=== PATIENT | male | born 1955 | race Caucasian/White ===

== ENCOUNTER 2018-02-23 04:43 | Observation (INO) | payer OTHER ==
[2018-02-23 05:21] LABS: PLATELET COUNT 297 10^3/uL (150-400)
[2018-02-23] MEDS ORDERED: PANTOPRAZOLE SODIUM 40 MG VIAL IVP ONE (05:22)
--- NOTE | 2018-02-23 05:22 | EDPHY ---
H & P Stated Complaint: Bloody ulcer, hx bleeding ulcer, lethargic, poor appetite Time Seen by Provider: 02/23/18 05:11 HPI/ROS: Chief Complaint: Abdominal pain, lightheaded, dark black bowel movement HPI: 62-year-old male with a history of bleeding ulcer 2 years ago is presenting with epigastric abdominal pain for the last several days and a large black bowel movement this morning. He says these are similar to his symptoms when he had his ulcer 2 years ago. He has been taking ibuprofen couple tablets every other day for the last month. Is also complaining of increasing fatigue and lightheadedness and shortness of breath. He is visiting from [place] and [place]. Has had some shortness of breath after arrival but is feeling better now is at lower altitude. No fainting. No chest pain or shortness of breath. No bright red blood per rectum. No nausea or vomiting. ROS: 10 point Review of Systems is negative except as noted in the HPI. PMH: Hypertension, hyperlipidemia, peptic ulcer disease Social History: No smoking, occasional alcohol, no recreational drug use Family History: non-contributory Physical Exam: Gen: Awake, Alert, No Distress HEENT: Nose: no rhinorrhea Eyes: PERRLA, EOMI Mouth: Moist mucosa Neck: Supple, no JVD Chest: nontender, lungs clear to auscultation Heart: S1, S2 normal, no murmur Abd: Soft, non-tender, no guarding Back: no CVA tenderness, no midline tenderness Ext: no edema, non-tender Skin: no rash Neuro: CN II-XII intact, Sensation grossly intact, Strength 5/5 in bilateral upper and lower extremities - Personal History Current Tetanus Diphtheria and Acellular Pertussis (TDAP): Yes - Medical/Surgical History Hx Asthma: No Hx Chronic Respiratory Disease: No Hx Diabetes: No Hx Cardiac Disease: No Hx Renal Disease: No Hx Cirrhosis: No Hx Alcoholism: No Hx HIV/AIDS: No Hx Splenectomy or Spleen Trauma: No Other PMH: ulcers - Social History Smoking Status: Never smoked Constitutional: Initial Vital Signs Temperature (C) 36.7 C 02/23/18 04:45 Heart Rate 87 02/23/18 04:45 Respiratory Rate 18 02/23/18 04:45 Blood Pressure 102/73 02/23/18 04:45 O2 Sat (%) 98 02/23/18 04:45 O2 Delivery Mode Room Air Allergies/Adverse Reactions: No Known Allergies Allergy (Unverified 02/23/18 04:45) Home Medications: Medication Instructions Recorded Atorvastatin Calcium 02/23/18 Valsartan 02/23/18 buPROPion 02/23/18 Medical Decision Making ED Course/Re-evaluation: 62-year-old male with a history of peptic ulcer disease presenting with melena and epigastric discomfort. His H&H are normal here. He is hemodynamically appropriate. I have ordered IV Protonix for him. I have discussed with Dr. Mosher. She will admit to her service for GI consult and endoscopy. - Data Points Laboratory Results: Laboratory Results 02/23/18 05:05 02/23/18 05:05 02/23/18 02/23/18 05:05 05:05 WBC 10.38 10^3/uL H 10^3/uL (3.80-9.50) RBC 4.76 10^6/uL 10^6/uL (4.40-6.38) Hgb 14.6 g/dL g/dL (13.7-17.5) Hct 42.0 % % (40.0-51.0) MCV 88.2 fL fL (81.5-99.8) MCH 30.7 pg pg (27.9-34.1) MCHC 34.8 g/dL g/dL (32.4-36.7) RDW 12.3 % % (11.5-15.2) Plt Count 297 10^3/uL 10^3/uL (150-400) MPV 10.4 fL fL (8.7-11.7) Neut % (Auto) 81.6 % H % (39.3-74.2) Lymph % (Auto) 10.2 % L % (15.0-45.0) Esmeralda % (Auto) 7.2 % % (4.5-13.0) Eos % (Auto) 0.2 % L % (0.6-7.6) Baso % (Auto) 0.4 % % (0.3-1.7) Nucleat RBC Rel Count 0.0 % % (0.0-0.2) Absolute Neuts (auto) 8.47 10^3/uL H 10^3/uL (1.70-6.50) Absolute Lymphs (auto) 1.06 10^3/uL 10^3/uL (1.00-3.00) Absolute Monos (auto) 0.75 10^3/uL 10^3/uL (0.30-0.80) Absolute Eos (auto) 0.02 10^3/uL L 10^3/uL (0.03-0.40) Absolute Basos (auto) 0.04 10^3/uL 10^3/uL (0.02-0.10) Absolute Nucleated RBC 0.00 10^3/uL 10^3/uL (0-0.01) Immature Gran % 0.4 % % (0.0-1.1) Immature Gran # 0.04 10^3/uL 10^3/uL (0.00-0.10) Sodium 142 mEq/L mEq/L (135-145) Potassium 4.8 mEq/L mEq/L (3.3-5.0) Chloride 105 mEq/L mEq/L (97-110) Carbon Dioxide 23 mEq/l mEq/l (22-31) Anion Gap 14 mEq/L mEq/L (8-16) BUN 42 mg/dL H mg/dL (7-23) Creatinine 1.2 mg/dL mg/dL (0.7-1.3) Estimated GFR > 60 Glucose 90 mg/dL mg/dL (70-100) Calcium 9.6 mg/dL mg/dL (8.5-10.4) Medications Given: Discontinued Medications Pantoprazole Sodium (Protonix) 80 mg IVP EDNOW ONE Stop: 02/23/18 05:23 Last Admin: 02/23/18 05:32 Dose: 80 mg Departure - Departure Disposition: [facility] Inpatient Acute Clinical Impression: Upper GI bleed Condition: Fair
[2018-02-23] MEDS ORDERED: PANTOPRAZOLE SODIUM 40 MG VIAL ONE (05:27)
[2018-02-23] MEDS ORDERED: ONDANSETRON 4 MG/2 ML VIAL IVP PRN (05:54)
[2018-02-23] MEDS ORDERED: ACETAMINOPHEN 325 MG TAB PO PRN ×2 (05:54→13:22)
[2018-02-23] MEDS ORDERED: NS 1,000 ML IV SCH (06:00)
[2018-02-23 06:12] LABS: INR 1.03 (0.83-1.16); PROTIME(PATIENT) 13.7 SEC (12.0-15.0)
--- NOTE | 2018-02-23 06:22 | PDGENHP ---
History and Physical - Chief Complaint melena, abdominal pain - History of Present Illness Source-patient provides history appears reliable. EMR was reviewed and case discussed with ED provider. HPI-this is a pleasant 62-year-old gentleman with past medical history significant for HTN, peptic ulcer disease with history of GI bleed in 2016 s/p cauterization presents emergency department with complaints of a large melenic stool this morning. Patient reports that he did have some abdominal pain approximately 3 days ago was a burning aching pain in his mid abdomen. He also had some episodes of nausea vomiting without any hematemesis or coffee-ground emesis. Since that time patient has had significantly declined appetite, dyspnea on exertion and lightheadedness. He has also felt more lethargic. 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 He reports minimal intake in the last 3 days. Of note also patient is visiting his family from [place] and were staying at higher elevation. The patient did have denies any history of diarrhea. No sick contacts. No fevers chills. Patient has been taking ibuprofen for intermittent headaches at least 3-4 times per week for the past month. Since onset of his symptoms patient has restarted [id number] omeprazole. History Information - Allergies/Home Medication List Allergies/Adverse Reactions: No Known Allergies Allergy (Unverified 02/23/18 04:45) Home Medications: Atorvastatin Calcium 02/23/18 [Last Taken Unknown] Valsartan 02/23/18 [Last Taken Unknown] buPROPion 02/23/18 [Last Taken Unknown] I have personally reviewed and updated: family history, medical history, social history, surgical history - Past Medical History GI bleed (The peptic ulcer with history of cauterization 2016. ), hypertension - Surgical History Additional surgical history: EGD with cauterization (2016) - Family History Additional family history: No family history of peptic ulcer disease, irritable bowel disease or other GI issues. No diabetes or hypertension in the family. Father did have a history of coronary artery disease. - Social History Smoking Status: Never smoked Alcohol Use: None Drug Use: None Additional social history: Patient is lives with his . He is from the [facility]. He generally leads the healthy lifestyle and is avid cyclist. Cor status-full Review of Systems Review of Systems: ROS: 10pt was reviewed & negative except for what was stated in HPI & below Constitutional: Reports: malaise, weakness (Generalized weakness), other ( Patient reports that he feels flushed. No measured fevers. No chills.) EENMT: Reports: other (Wears glasses.). Denies: blurred vision, nose congestion , sore throat Cardiac: Reports: lightheadedness. Denies: edema, palpitations Respiratory: Reports: shortness of breath (Dyspnea on exertion.). Denies: cough , orthopnea, wheezing Gastrointestinal: Reports: vomitting, black stools, abdominal pain, nausea, other (See HPI). Denies: diarrhea Genitourinary: Reports: no symptoms Muscolosketal: Reports: no symptoms Skin: Reports: no symptoms Neurological: Reports: headache, weakness (Generalized weakness no focal deficits.). Denies: numbness, tingling Hematologic/Lymphatic: Reports: no symptoms Physical Exam Physical Exam: Temp Pulse Resp BP Pulse Ox 36.7 C 87 18 102/73 98 02/23/18 04:45 02/23/18 04:45 02/23/18 04:45 02/23/18 04:45 02/23/18 04:45 Constitutional: no apparent distress, other (NAD. Patient resting quietly in bed. Does appear slightly fatigued. His and brother are at bedside.) Eyes: PERRL, anicteric sclera, EOMI, No scleral injection Ears, Nose, Mouth, Throat: no oral mucosal ulcers, dry mucous membranes, other ( No nasal discharge.), No poor dentition Cardiovascular: regular rate and rhythym, no murmur, rub, or gallop, pulses symmetric bilaterally, No edema Peripheral Pulses: 2+: dorsalis-pedis (R), dorsalis-pedis (L) Respiratory: no respiratory distress, no rales or rhonchi, clear to auscultation , No expiratory wheeze, No inspiratory crackles Gastrointestinal: soft, non-tender abdomen, no palpable masses, other ( Hypoactive bowel sounds), No tenderness, No guarding, No rebound, No distension Genitourinary: no bladder tenderness, No kennedy in urethra Skin: warm, normal color, no rashes or abrasions Musculoskeletal: full muscle strength, other (Patient moves all extremities. Sits up independently.) Neurologic: AAOx3, sensation intact bilaterally, other (Grossly nonfocal exam.) , No facial droop Psychiatric: interacting appropriately, not anxious, not encephalopathic, thought process linear Lab Data & Imaging Review 02/23/18 05:05 02/23/18 05:05 WBC 10.38 10^3/uL (3.80-9.50) H 02/23/18 05:05 RBC 4.76 10^6/uL (4.40-6.38) 02/23/18 05:05 Hgb 14.6 g/dL (13.7-17.5) 02/23/18 05:05 Hct 42.0 % (40.0-51.0) 02/23/18 05:05 MCV 88.2 fL (81.5-99.8) 02/23/18 05:05 MCH 30.7 pg (27.9-34.1) 02/23/18 05:05 MCHC 34.8 g/dL (32.4-36.7) 02/23/18 05:05 RDW 12.3 % (11.5-15.2) 02/23/18 05:05 Plt Count 297 10^3/uL (150-400) 02/23/18 05:05 MPV 10.4 fL (8.7-11.7) 02/23/18 05:05 Neut % (Auto) 81.6 % (39.3-74.2) H 02/23/18 05:05 Lymph % (Auto) 10.2 % (15.0-45.0) L 02/23/18 05:05 Baker % (Auto) 7.2 % (4.5-13.0) 02/23/18 05:05 Eos % (Auto) 0.2 % (0.6-7.6) L 02/23/18 05:05 Baso % (Auto) 0.4 % (0.3-1.7) 02/23/18 05:05 Nucleat RBC Rel Count 0.0 % (0.0-0.2) 02/23/18 05:05 Absolute Neuts (auto) 8.47 10^3/uL (1.70-6.50) H 02/23/18 05:05 Absolute Lymphs (auto) 1.06 10^3/uL (1.00-3.00) 02/23/18 05:05 Absolute Monos (auto) 0.75 10^3/uL (0.30-0.80) 02/23/18 05:05 Absolute Eos (auto) 0.02 10^3/uL (0.03-0.40) L 02/23/18 05:05 Absolute Basos (auto) 0.04 10^3/uL (0.02-0.10) 02/23/18 05:05 Absolute Nucleated RBC 0.00 10^3/uL (0-0.01) 02/23/18 05:05 Immature Gran % 0.4 % (0.0-1.1) 02/23/18 05:05 Immature Gran # 0.04 10^3/uL (0.00-0.10) 02/23/18 05:05 PT 13.7 SEC (12.0-15.0) 02/23/18 05:05 INR 1.03 (0.83-1.16) 02/23/18 05:05 APTT 32.6 SEC (23.0-38.0) 02/23/18 05:05 Sodium 142 mEq/L (135-145) 02/23/18 05:05 Potassium 4.8 mEq/L (3.3-5.0) 02/23/18 05:05 Chloride 105 mEq/L (97-110) 02/23/18 05:05 Carbon Dioxide 23 mEq/l (22-31) 02/23/18 05:05 Anion Gap 14 mEq/L (8-16) 02/23/18 05:05 BUN 42 mg/dL (7-23) H 02/23/18 05:05 Creatinine 1.2 mg/dL (0.7-1.3) 02/23/18 05:05 Estimated GFR > 60 02/23/18 05:05 Glucose 90 mg/dL (70-100) 02/23/18 05:05 Calcium 9.6 mg/dL (8.5-10.4) 02/23/18 05:05 Total Bilirubin 1.0 mg/dL (0.1-1.4) 02/23/18 05:05 Conjugated Bilirubin 0.3 mg/dL (0.0-0.5) 02/23/18 05:05 Unconjugated Bilirubin 0.7 mg/dL (0.0-1.1) 02/23/18 05:05 AST 16 IU/L (17-59) L 02/23/18 05:05 ALT 29 IU/L (21-72) 02/23/18 05:05 Alkaline Phosphatase 56 IU/L (38-126) 02/23/18 05:05 Total Protein 7.3 g/dL (6.3-8.2) 02/23/18 05:05 Albumin 4.5 g/dL (3.5-5.0) 02/23/18 05:05 Assessment & Plan Assessment: 62-year-old gentleman with history of HTN, remote GI bleed due to ulcer in 2016 who presents to the ED with complaints of a large melenic stool preceded by abdominal pain. #Upper GI bleed (Acute) - patient currently hemodynamically stable. Blood pressure is low normal which patient reports remain elevated despite treatment. Heart rate within normal range. H&H is also within normal limits at this time. Patient has received a dose of Protonix in the emergency department. He will be admitted for observation. Will monitor H&H. Patient will be made NPO and given IV fluids. Case was discussed with (gastroenterology) and he will plan to see the patient this morning. chronic medical issues #The benign essential hypertension - blood pressures low end of normal at this time. Patient reports that they are usually still elevated despite treatment. Patient is symptomatic with lightheadedness and dyspnea on exertion. Plan as noted above. FEN - IV fluids as well with normal saline. Patient made will be made NPO. His mucous membranes appear slightly dry. PPX-SCDs. Received Protonix bolus in the ED. Cor status- full Disposition-patient will be admitted observation status on the medical floor pending further at evaluation and recommendations from GI.
[2018-02-23] MEDS ORDERED: LR 1,000 ML IV ONE (10:02)
--- NOTE | 2018-02-23 10:11 | PDANEPAE ---
ANE History of Present Illness r/o UGIB EGD ANE Past Medical History - Cardiovascular History Hx Hypertension: Yes - Pulmonary History Hx Oxygen in Use at Home: No Hx Sleep Apnea: No - Endocrine History Hx Diabetes: No - Chronic Pain History Chronic Pain: No ANE Review of Systems Review of Systems: - Exercise capacity Exercise capacity: >=4 METS ANE Patient History - Allergies Allergies/Adverse Reactions: No Known Allergies Allergy (Unverified 02/23/18 04:45) - Home Medications Home Medications: Acetaminophen [Tylenol 325mg (*)] 325 mg PO DAILY PRN 02/23/18 [Last Taken 02/22] Atorvastatin Calcium [Lipitor 10 mg (*)] 10 mg PO HS 02/23/18 [Last Taken ] Cholecalciferol Vit D3 [Vitamin D3 (*)] 1,000 units PO DAILY 02/23/18 [Last Taken 02/22/18] Montelukast Sodium [Singulair 10 mg (*)] 10 mg PO HS PRN 02/23/18 [Last Taken ] Multivitamins [Multivitamin (*)] 1 each PO DAILY 02/23/18 [Last Taken 02/22/18] Omeprazole 20 mg PO DAILY 02/23/18 [Last Taken 02/22/18] Valsartan [Diovan (*)] 160 mg PO DAILY 02/23/18 [Last Taken 02/22/18] buPROPion XL [Wellbutrin Xl] 150 mg PO DAILY 02/23/18 [Last Taken 02/22/18] - NPO status NPO Status: no food or drink >8 hours - Anes Hx Anes Hx: no prior problems - Smoking Hx Smoking Status: Never smoked - Alcohol Use Alcohol Use: None - Family Anes Hx Family Anes Hx: none ANE Labs/Vital Signs - Labs Result Diagrams: 02/23/18 09:18 02/23/18 05:05 - Vital Signs Blood Pressure: 101/69 Heart Rate: 57 Respiratory Rate: 18 O2 Sat (%): 95 Height: 182.88 cm Weight: 95.254 kg ANE Physical Exam - Airway Neck exam: FROM Mallampati Score: Class 2 Mouth exam: normal dental/mouth exam - Pulmonary Pulmonary: no respiratory distress, clear to auscultation - Cardiovascular Cardiovascular: regular rate and rhythym, no murmur, rub, or gallop - ASA Status ASA Status: II ANE Anesthesia Plan Anesthesia Plan: GA with mask
[2018-02-23] MEDS ORDERED: PROPOFOL/EMULSION 500 MG/50 ML BOTTLE IV ONE (10:15)
[2018-02-23] MEDS ORDERED: EPINEPHrine 1 MG/10 ML SYR IVP ONE (10:23)
[2018-02-23] MEDS ORDERED: NALOXONE HCL 0.4 MG/ML INJ IVP PRN (10:37)
[2018-02-23] MEDS ORDERED: ACETAMINOPHEN 500 MG TAB PO PRN (10:37)
--- NOTE | 2018-02-23 10:38 | POSTANESTH ---
Post Anesthetic Evaluation Cardiovascular Status: Normal, Stable, Similar to Pre-Op Cond Respiratory Status: Normal, Stable, Similar to Pre-op Cond. Level of Consciousness/Mental Status: Moderately Sleepy Pain Control: Adequate, Prn Tx Ordered Nausea/Vomiting Control: Adequate, Prn Tx Ordered Complications Possibly Related to Anesthesia: None Noted
--- NOTE | 2018-02-23 10:39 | GIREPORT ---
[facility] - Endoscopy Department Patient Name: Salazar Shannon Procedure Date: 02/23/2018 9:57 AM Patient Type: Inpatient Attending MD/ ER Physician: Salazar Torres MD Procedure: Upper GI endoscopy Indications: Periumbilical abdominal pain, Melena Providers: Salazar Torres MD Medicines: Propofol per Anesthesia Complications: No immediate complications. Description of Procedure: After obtaining informed consent, the endoscope was passed under direct vision. Throughout the procedure, the patient's blood pressure, pulse, and oxygen saturations were monitored continuously. The Endoscope was intro duced through the mouth, and advanced to the third part of duodenum. The uppe r GI endoscopy was accomplished without difficulty. The patient tolerated th e procedure well. Findings: LA Grade B (one or more mucosal breaks greater than 5 mm, not extending between the tops of two mucosal folds) esophagitis with no bleeding was found 35 cm from the incisors. The entire examined stomach was normal. Biopsies were taken with a cold forceps for histology. One non-bleeding cratered duodenal ulcer with pigmented material was fo und in the first portion of the duodenum. The lesion was 12 mm in largest dimension. The duodenal bulb, second portion of the duodenum and area of the papil la were normal. Estimated Blood Loss: Estimated blood loss: none. Post Op Diagnosis: - LA Grade B reflux esophagitis. - Normal stomach. Biopsied. - One non-bleeding duodenal ulcer with pigmented material. NSAID induce d. No endoscopic therapy required. - Normal duodenal bulb, second portion of the duodenum and area of the papilla. Recommendation: - Await pathology results and treat H.pylori if positive - Avoid all NSAIDs (stop ibuprofen). - Use Protonix (pantoprazole) 40 mg PO BID for 8 weeks then once daily thereafter given the recurrent nature of his ulcer history. - Repeat upper endoscopy in 3 months to check healing. - Advance diet as tolerated today. - [facility] to [facility] for possible discharge same day. - Thank you for allowing me to be involved in the care of your patient. Attending Participation: I personally performed the entire procedure without the assistance of a fellow, resident or surg ical physician assistant primary care. Salazar Torres MD Salazar Torres MD 02/23/2018 10:38:28 AM This report has been signed electronicallyDavid MD Brian Number of Addenda: 0 Note Initiated On: 02/23/2018 9:57 AM [email or web address]
--- NOTE | 2018-02-23 11:14 | GCON ---
[f rep st] CONSULTATION DATE OF CONSULTATION: 02/23/2018 REFERRING PHYSICIAN: Christine Gonzáles MD REASON FOR CONSULTATION: Melena. Dear Dr. Gonzáles: Thank you very kindly for asking me to evaluate Mr. Shannon in consultation for his chief complaint of melena. He is a pleasant 62-year-old gentleman with a previous history of a bleeding peptic ulcer t hat required endoscopic therapy, who presents with shortness of breath and fatigue and periumbilical abdominal pain. 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 Yesterday he had 1 large liquid dark black stool. There has been no nausea, vomiting, chest pain, heartburn, or hematoc hezia. He has been a little bit lightheaded. Coming down from [place] into [place] he actually s aid his breathing was improved. His initial hematocrit was 42 and has remained stable. He has been taking a fairly significant amount of ibuprofen over the last month for chronic headaches. Prior to this, he was on Tylenol. It seems that his previous peptic ulcer was also NSAID related. I am asked to assist with further evaluation and management. PAST MEDICAL HISTORY: Hypertension, NSAID-induced peptic ulcer with bleeding in 2016. PAST SURGICAL HISTORY: None. FAMILY HISTORY: Negative for anemia, peptic ulcer disease, stomach cancer, or heartburn. SOCIAL HISTORY: No tobacco, no alcohol. 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 He is . He is from [facility]. He is visiting his family cabin in [place]. No history of substance abuse. ALLERGIES: None. MEDICATIONS: On admission included ibuprofen, he takes about 800 mg ibuprofen 2-3 times a day as nee ded for headache. No other medications. REVIEW OF SYSTEMS: CONSTITUTIONAL: He has been somewhat fatigued and has felt generally weak. HEEN T: He has chronic headaches, none currently. No visual disturbances. No epistaxis. No sore throat . No difficulty swallowing. PULMONARY: He has been short of breath with exertion and somewhat at r est but denies any orthopnea. CARDIOVASCULAR: No chest pain. No palpitations. No syncope. GI: Pe r the HPI, otherwise negative. RHEUMATOLOGIC: No joint pain or swelling. DERMATOLOGIC: No rash or jaundice. No bruising. ENDOCRINE: No heat or cold intolerance. No polyuria. No polydipsia. MUS CULOSKELETAL: Denies myalgias. PSYCHIATRIC: No depression, anxiety, or insomnia. PHYSICAL EXAM: VITAL SIGNS: Blood pressure 101/69 with a pulse of 57, respirations 18, oxygenation 95% on room air. Temperature is T-max of 37.2. GENERAL: Healthy-appearing male in no acute distres s. HEENT: Normocephalic, atraumatic. Sclerae anicteric. Oropharynx clear. No palatal petechiae. NECK: Supple. No lymphadenopathy. PULMONARY: Clear to auscultation bilaterally with good respira tory exchange. CARDIOVASCULAR: Regular rate and rhythm without murmur, rub, or gallop. GI: Abdome n is soft and scaphoid. No surgical scars. No distention. No organomegaly. No abdominal bruit. N o ascites. MUSCULOSKELETAL: Normal gait and station without clubbing or cyanosis. No palmar erythe ma. NEUROLOGIC: Alert to person, place, and time. Motor exam nonfocal. Cranial nerves are normal. LABORATORY DATA: Database includes the following: White blood count is 10.3, hematocrit 42, platele ts 297. INR 1.03, PT 13.7, PTT 32.6. Sodium 142, potassium 4.6, chloride 105, bicarbonate 23, BUN i s elevated at 42 with a creatinine of 1.2, glucose is 90. Total bilirubin 1.0 with a conjugated of 0 .3, AST 16, ALT 29, alkaline phosphatase 56, total protein 7.3, albumin 4.5. IMPRESSION: 1. Periumbilical abdominal pain. 2. Melena. 3. Fatigue and weakness. 4. Chronic nonsteroidal anti-inflammatory drug use for headaches. RECOMMENDATIONS: 1. N.p.o. 2. IV PPI therapy. 3. Upper endoscopy to evaluate his melena with elevated BUN and abdominal pain in the setting of NSA ID use and history of peptic ulcer disease. 4. Further recommendations to follow. /[id number]/MODL
--- NOTE | 2018-02-23 11:42 | ASMTCAGE ---
CAGE Do you feel you ought to Answers: No cut down on your drinking or drug use? Do people annoy you by Answers: No criticizing your drinking or drug use? Do you feel guilty about Answers: No your drinking or drug use? Do you drink or use drugs Answers: No first thing in the morning (Eye Armhole Raiser Lockstitch)? Additional Comments Pt states he drinks a total of 4 wine coolers a month. Never more than 1 in a sitting. Date Signed: 02/23/2018 11:41 AM Electronically Signed By:Marisa Marvin RN
--- NOTE | 2018-02-23 11:46 | ASMTCMCOM ---
CM Note CM Note Notes: 02/23/2018 Case Management Note Met w/pt and Patricia [phone] to discuss d/c needs. Pt admitted for treatment of upper GI bleed. Completed CAGE. Pt lives in [place] independently with his . Pt and were vacationing in [place] in a cabin owned by a family member. Initially they planned to stay in [place] until March 01 but may return to [place] earlier. There are no identified case management needs. Pt is independent in ADL's. Case Management d/c poc: independent. Case Management available if needs change. Date Signed: 02/23/2018 11:45 AM Electronically Signed By:Marisa Marvin RN
[2018-02-23 11:50] VITALS: BP 110/74
[2018-02-23] MEDS ORDERED: MONTELUKAST SODIUM 10 MG TAB PO PRN (13:22)
--- NOTE | 2018-02-23 15:04 | GDS ---
[f rep st] DISCHARGE SUMMARY DISCHARGE DIAGNOSIS: Duodenal ulcer. PHYSICAL EXAMINATION: GENERAL: The patient is alert. VITAL SIGNS: Afebrile at 36.8, pulse 60, res piratory rate is 18, blood pressure is 110/74. He is saturating 99% on room air. I have seen and evaluated the patient on the day of discharge. HOSPITAL COURSE: The patient is a 62-year-old male who presented to the emergency room with complain ts of melena with abdominal pain. He was evaluated during this hospital course. He received an uppe r endoscopy by Dr. Torres of Gastroenterology. A duodenal ulcer was identified, likely NSAID induced. The patient has been instructed to refrain from any further NSAIDs in the outpatient setting. He w ill be continued on oral Protonix and will be discharged home with his independently. He is fee ling significantly better. He has tolerated a regular diet and has no further complaints. FOLLOWUP: Followup will be at home with his primary physician for a repeat EGD in 3 weeks, as well a s pending pathologies and biopsies from his EGD at this present time. I have not discontinued the jasmina villegasroxanne's previously prescribed home medications. He has been provided a prescription for Protonix. /[id number]/MODL
[2018-02-23] MEDS ORDERED: PANTOPRAZOLE SODIUM 40 MG TAB PO SCH (21:00)
[2018-02-23] MEDS ORDERED: ATORVASTATIN CALCIUM 10 MG TAB PO SCH (21:00)
[2018-02-24] MEDS ORDERED: PANTOPRAZOLE SODIUM 40 MG TAB PO SCH (09:00)
[2018-02-24] MEDS ORDERED: VALSARTAN 160 MG TAB PO SCH (09:00)
[2018-02-24] MEDS ORDERED: MULTIVITAMINS 1 EACH TAB PO SCH (09:00)
[2018-02-24] MEDS ORDERED: CHOLECALCIFEROL VIT D3 1,000 UNITS TAB PO SCH (09:00)
[2018-02-24] MEDS ORDERED: buPROPion XL 150 MG TAB PO SCH (09:00)
== END 2018-02-23 15:20 | disposition home or self-care (01) ==
LOC: F2W 08:40
PROVIDERS: ADMIT Family Medicine; ATTEND Family Medicine
PROC: 0DB68ZX Excision of Stomach, Via Natural or Artificial Opening Endoscopic, Diagnostic (ICD-10-PCS; principal; 2018-02-23 10:30)
DX: K26.3 Acute duodenal ulcer without hemorrhage or perforation (principal); K29.50 Unspecified chronic gastritis without bleeding
CPT/HCPCS: 43239; G0378; 96374; J2704